=== PATIENT | female | born 1990 | race Caucasian/White ===

== ENCOUNTER 2018-01-19 20:32 | Emergency (ER) | payer OTHER ==
[~2018-01-19] VITALS: Ht 167.6 cm; Wt 112.5 kg
[~2018-01-19 20:32] MED LIST: CYCLOBENZAPRINE10 MG PO; DICLOFENAC SODI50 MG PO; FOLIC ACID1 MG; IRON18 MG; ZANTAC300 MG PO; ZOFRAN4 MG PO
[2018-01-19] MEDS ORDERED: SEPTRA (20:42)
== END 2018-01-19 22:35 | disposition home or self-care (01) ==
LOC: ER 20:32
DX: L03.116 Cellulitis of left lower limb (principal)